=== PATIENT | female | born 1970 | race African-American/Black ===

== ENCOUNTER 2017-06-22 23:10 | Emergency (ER) | payer SELFPAY ==
[~2017-06-22] VITALS: Ht 172.7 cm; Wt 159.0 kg
[~2017-06-22 23:10] MED LIST: ASPI81 PO; IRONCAP2 PO; PROM25SU8 PO
[2017-06-22 23:11] VITALS: BP 185/101; PULSE 88; RESP 16; TEMP 100.1; O2SAT 96
--- NOTE | 2017-06-23 00:31 | PD ---
HPI Chief Complaint: Cold / Flu Symptoms Time Seen by Provider: 00:30 Travel History International Travel<30 days: No Contact w/Intl Traveler<30days: No Traveled to known affect area: No History of Present Illness HPI 46-year-old female patient presents to the ER today with cough, cold symptoms, sore throat, headaches, fevers starting on . She denies any vomiting, diarrhea, abdominal pains, or any other symptoms. She does not know sick contacts. Modifying Factors: None Associated Signs & Symptoms: Cough, cold symptoms, headaches, fevers, sore throat Risk Factors: None PFSH Past Medical History Cardiovascular Problems: Yes (HTN) High Cholesterol: Yes Diabetes: Yes Patient Takes Glucophage: No Diminished Hearing: No Endocrine: Yes Genitourinary: No Hypertension: Yes Immune Disorder: No Musculoskeletal: No Neurologic: No Psychiatric: No Reproductive: No Respiratory: No Immunizations Current: Yes ?: Not LMP: 05/31/17 : 3 Para: 1 Miscarriage: 0 : 2 Past Surgical History Tonsillectomy: Yes Other Surgery: Yes (FOOT SURGERY FOR A BONE SPUR) Social History Alcohol Use: Yes (OCCASSIONALLY) Tobacco Use: No Substance Use: No Allergies-Medications (Allergen,Severity, Reaction): Coded Allergies: MRI PRECAUTION (Verified Allergy, Severe, ON 05/01/08 PT WEIGHS 357 LBS, ) acetaminophen (Unverified Allergy, Severe, 06/23/17) hydrocodone (Unverified Allergy, Severe, 06/23/17) Reported Meds & Prescriptions Reported Meds & Active Scripts Active No Active Prescriptions or Reported Medications Review of Systems Except as stated in HPI: all other systems reviewed are Neg Physical Exam Narrative GENERAL: Well-developed middle age -[place] female patient currently in mild distress. Awake and oriented 3. SKIN: Focused skin assessment warm/dry. HEAD: Atraumatic. Normocephalic. EYES: Pupils equal and round. No scleral icterus. No injection or drainage. ENT: Mucosa pink and moist. Mild erythema with no exudates. No uvular edema. No uvular, palatal, or tonsillar deviation. Airway patent. NECK: Trachea midline. No JVD. Supple. CARDIOVASCULAR: Regular rate and rhythm. No murmur appreciated. RESPIRATORY: No accessory muscle use. Clear to auscultation. Breath sounds equal bilaterally. GASTROINTESTINAL: Abdomen soft, non-tender, nondistended. Hepatic and splenic margins not palpable. MUSCULOSKELETAL: No obvious deformities. No clubbing. No cyanosis. No edema. NEUROLOGICAL: Awake and alert. No obvious cranial nerve deficits. Motor grossly within normal limits. Normal speech. PSYCHIATRIC: Appropriate mood and affect; insight and judgment normal. Data Data Last Documented VS Vital Signs Date Time Temp Pulse Resp B/P (MAP) Pulse Ox O2 Delivery O2 Flow Rate FiO2 06/22/17 23:11 100.1 88 16 185/101 (129) 96 Room Air Orders Orders Influenzae A/B Antigen (06/23/17 00:24) MDM Medical Decision Making Medical Screen Exam Complete: Yes Emergency Medical Condition: Yes Medical Record Reviewed: Yes Differential Diagnosis URI versus viral syndrome versus influenza versus bronchitis Narrative Course Influenza testing is positive. Patient has been having symptoms since , beyond a 24-hour period, and at this point my plan would be to treat her symptomatically. Follow-up with primary care physician as needed. Return for any worsening in symptoms as needed. The plan has been discussed with her and she states understanding. Diagnosis Primary Impression: Influenza A Med/Other Pt SpecificInfo: Prescription(s) given Scripts Ibuprofen (Ibuprofen) 600 Mg Tab 600 MG PO Q6H Y for Pain/Inflammation, #20 TAB 0 Refills Prov: Brooke Brennan MD 06/23/17 Disposition: 01 DISCHARGE HOME Condition: Stable Brooke Brennan MD Jun 23, 2017 00:31
[2017-06-23] MEDS ORDERED: IBUP-232 PO (01:18)
== END 2017-06-23 02:12 | disposition home or self-care (01) ==
LOC: NEPC 23:10
DX: J10.1 Influenza due to other identified influenza virus with other respiratory manifestations (principal)
CPT/HCPCS: 87804; 99283